=== PATIENT | female | born 1970 | race Caucasian/White ===

== ENCOUNTER → 2024-10-17 08:43 | Outpatient (CLI) | payer OTHER, SELFPAY ==
[2024-10-17 09:47] LABS: Add Manual Diff / Slide Review NO; Basophils Absolute Auto 0 /uL (0-100); Basophils Percent Auto 0.5 % (0-2); Eosinophils Absolute Auto 200 /uL (0-450); Eosinophils Percent Auto 3.1 % (2-4); Hematocrit 37.9 % (36-46); Lymphocytes Absolute Auto 800 /uL (1100-4500); Lymphocytes Percent Auto 12.9 % (25-40); Mean Corpuscular HGB Conc 34.2 % (30-36); Mean Corpuscular Hemoglobin 31.8 PG (26-34); Monocytes Absolute Auto 400 /uL (0-900); Monocytes Percent Auto 6.9 % (3-14); Neutrophils Absolute Auto 4600 /uL (1500-7000); Neutrophils Percent Auto 76.6 % (50-75); Platelet Count 314 X10^3/uL (150-400); Red Blood Cell Count 4.08 X10^6/uL (4.0-5.2); Red Cell Distribution Width 12.7 % (11.6-14.8); White Blood Cell Count 5.9 X10^3/uL (4.5-11.0)
[2024-10-17 10:05] LABS: Alanine Aminotransferase 17 IU/L (<35); Albumin 4.1 g/dL (3.5-5.0); Albumin Globulin Ratio 1.7 (1.0-2.8); Alkaline Phosphatase 45 U/L (38-126); Aspartate Aminotransferase 23 IU/L (14-36); BUN Creatinine Ratio 32.7 (6-22); Bilirubin Total 0.5 mg/dL (0.2-1.3); Blood Urea Nitrogen 18 mg/dL (7-17); Calcium 9.1 mg/dL (8.4-10.2); Carbon Dioxide 23 mmol/L (22-32); Chloride 105 mmol/L (98-107); Cholesterol 181 mg/dL (140-199); Estimated Glomerular Filt Rate > 60 mL/min (>60); Globulin 2.4 g/dL (1.7-4.1); Glucose 115 mg/dL (70-99); HDL Cholesterol 89 mg/dL (40-60); HEMOLYSIS < 15 (0-50); Iron 76 ug/dL (37-170); LDL Cholesterol Calculated 74 mg/dL (<100); Potassium 4.3 mmol/L (3.4-5.1); Sodium 135 mmol/L (137-145); Total Protein 6.5 g/dL (6.3-8.2); Triglycerides 92 mg/dL (35-150)
[2024-10-17 10:15] LABS: Total Iron Binding Capacity 355 ug/dL (265-497)
[2024-10-17 10:23] LABS: T4 Total Thyroxine 6.71 ug/dL (5.5-11.0)
[2024-10-17 10:36] LABS: Cortisol AM (Before 10AM) 10.7 ug/dL (4.46-22.7); Thyroid Stimulating Hormone 0.581 uIU/mL (0.47-4.68)
[2024-10-17 10:40] LABS: Ferritin 33 ng/mL (11-264)
[2024-10-17 10:55] LABS: Follicle Stimulating Hormone 18.8 mIU/mL; Luteinizing Hormone 14.4 mIU/mL
[2024-10-17 11:10] LABS: Estradiol, Total 37.8 pg/mL
[2024-10-17 23:10] LABS: Sex Hormone Binding Globulin 62.6 nmol/L (17.3-125.0); Triiodothyronine T3 Total 91 ng/dL (71-180)
[2024-10-18 05:11] LABS: Insulin Level Total 11.6 uIU/mL (2.6-24.9)
[2024-10-18 06:37] LABS: Thyroid Peroxidase Antibodies <9 IU/mL (0-34)
[2024-10-21 11:41] LABS: Triiodothyronine T3 Reverse 9.5 ng/dL (.)
== END ==
PROVIDERS: PCP Specialist; Referring Provider Physician Assistant Surgical; Visit Provider Physician Assistant Surgical
DX: Z13.29 Encounter for screening for other suspected endocrine disorder (principal); D51.0 Vitamin B12 deficiency anemia due to intrinsic factor deficiency; E07.89 Other specified disorders of thyroid; E61.1 Iron deficiency; E29.1 Testicular hypofunction; R94.7 Abnormal results of other endocrine function studies; E28.39 Other primary ovarian failure; E06.3 Autoimmune thyroiditis; R89.1 Abnormal level of hormones in specimens from other organs, systems and tissues; E23.6 Other disorders of pituitary gland; E88.810 Metabolic syndrome
CPT/HCPCS: 36415; 80053; 80061; 82533; 82670; 82728; 83001; 83002; 83525; 83540; 83550; 84144; 84270; 84402; 84403; 84436; 84443; 84480; 84482; 85025; 86376; 86800